=== PATIENT | male | born 1940 | race Caucasian/White ===

== ENCOUNTER 2016-12-28 10:26 | Observation (INO) | payer OTHER ==
[~2016-12-28] VITALS: Ht 175.3 cm; Wt 80.0 kg
[~2016-12-28 10:26] MED LIST: CALC-187 PO; CLOP75 PO; CYCL1PAK PO; EPLE25TA PO; LASI20TA PO; LISI-357 PO; LORTA10 PO; MAGN250T13 PO; MELA10TA PO; MELO15; METO25 PO; NEUR100C PO; NITR0.4S SL; NOVONP2 SQ; NOVORP2 SQ; PRAV80TA PO; PROS5TAB2 PO; PROZ40CA PO; TAB-TAB PO; VITA-13 PO
[2016-12-28 10:28] VITALS: BP 151/65; PULSE 70; RESP 15; TEMP 98.2; O2SAT 96
[2016-12-28 10:55] VITALS: BP 161/77; PULSE 69; RESP 18; O2SAT 99
[2016-12-28] MEDS ORDERED: ACETAMINOPHEN 325 MG TAB PO ONE (11:00)
[2016-12-28 11:02] LABS: AUTOMATED NEUTROPHIL # 6.2 TH/MM3 (1.8-7.7); BASOPHIL # 0.1 TH/MM3 (0-0.2); BASOPHIL % 1.2 % (0.0-2.0); EOSINOPHIL # 0.3 TH/MM3 (0-0.4); EOSINOPHIL % 2.8 % (0.0-4.0); HEMATOCRIT 40.1 % (39.0-51.0); HEMO FLAGS DIFF FINAL; LYMPH % 17.2 % (9.0-44.0); LYMPHOCYTE # 1.5 TH/MM3 (1.0-4.8); MEAN CELL VOLUME 87.1 FL (80.0-100.0); MEAN CORPUSCULAR HEMOGLOBIN 29.7 PG (27.0-34.0); MEAN CORPUSCULAR HGB CONC 34.1 % (32.0-36.0); NEUT % 68.8 % (16.0-70.0); PLATELET COUNT 287 TH/MM3 (150-450); RED CELL DISTRIBUTION WIDTH 13.8 % (11.6-17.2)
--- NOTE | 2016-12-28 11:05 | PD ---
HPI . Chest pain Chief Complaint: Chest Pain Time Seen by Provider: 10:51 Travel History International Travel<30 days: Yes Contact w/Intl Traveler<30days: Yes Name of Country Traveled to: [facility] Traveled to known affect area: Yes History of Present Illness HPI Patient presents for the evaluation of chest pain. Patient reports an episode of chest pain 8 days ago associated with shortness of breath and dizziness. It was relieved by one sublingual nitroglycerin. He went to see his software development engineer about it yesterday. His software development engineer suggested that he present to the emergency department for a more thorough evaluation. The patient comes in to us this morning for that evaluation. He is pain-free at this time and has been pain-free since 8 days ago. PFSH Past Medical History Anemia: Yes Arthritis: Yes Asthma: No Autoimmune Disease: Yes Blood Disorders: No Anxiety: Yes Depression: Yes Heart Rhythm Problems: No Cancer: No Cardiovascular Problems: Yes High Cholesterol: Yes Chemotherapy: No Chest Pain: No Congestive Heart Failure: Yes COPD: No Cerebrovascular Accident: No Diabetes: Yes (since 20 yrs. ago) Diminished Hearing: Yes (HEARING AIDS BUT DOES NOT WEAR. [place]) Endocrine: Yes Gastrointestinal Disorders: Yes Glaucoma: No Genitourinary: No Headaches: No Hepatitis: No Hiatal Hernia: No Hypertension: Yes Immune Disorder: No Implanted Vascular Access Dvce: Yes Musculoskeletal: Yes Neurologic: Yes (neuropathy) Psychiatric: Yes Reproductive: No Respiratory: Yes Migraines: No Myocardial Infarction: Yes Renal Failure: No Seizures: No Sleep Apnea: No Thyroid Disease: No Past Surgical History Abdominal Surgery: Yes AICD: Yes Arteriovenous Shunt: No Cardiac Surgery: Yes (cabg x5 1996 deffibrilator 2007) Coronary Artery Bypass Graft: Yes (5 bypass 1996) Ear Surgery: No Endocrine Surgery: No Eye Surgery: Yes (ioli 2011) Genitourinary Surgery: Yes Gynecologic Surgery: No Insulin Pump: No Joint Replacement: No Neurologic Surgery: Yes (RIGHT ENDARTERECTOMY) Oral Surgery: Yes Pacemaker: Yes Thoracic Surgery: Yes Other Surgery: Yes (BOTH LEGS VEINS STRIPPED) Social History Alcohol Use: No Tobacco Use: No (QUIT 1977) Substance Use: No Allergies-Medications (Allergen,Severity, Reaction): Coded Allergies: Codeine (Verified Allergy, Severe, 12/28/16) *MDRO Multi-Drug Resistant Organism (Verified Allergy, Unknown, 12/28/16) MRSA Sputum and Bronch washings, most recent 12/2009 Tylenol/Codeine (Verified Adverse Reaction, Intermediate, SWEATS, 12/28/16) Reported Meds & Prescriptions Reported Meds & Active Scripts Active Reported Eplerenone 25 Mg Tab PO Mobic 15 Mg Tab (Meloxicam) 15 Mg Tab 15 Mg .XX Pravachol 80 Mg Tab 1 Tab PO HS Melatonin Cr (Melatonin) 10 Mg Tab 10 Mg PO HS Metoprolol Tartrate 25 Mg Tab 1 Tab PO HS Novolin N (Insulin Human NPH) 100 Units/Ml Inj 12 Units SQ BID Lisinopril 5 Mg Tab 5 Mg PO BID Novolin R (Insulin Human Regular) 100 Units/Ml Inj 8 Units SQ BID Eplerenone 25 Mg Tab 25 Mg PO DAILY Lortab 10/325 Tab (Hydrocodone-Acetaminophen) 10 Mg/325 Mg Tab 1 Tab PO BIDPRN Cyclobenzaprine Hcl (Cyclobenzaprine HCl) 10 Mg Tab 0.5 Tab PO BID PRN Vitamin D3 1000 Unit Tab (Cholecalciferol) 1,000 Unit Tab 1,000 Unit PO DAILY Calcium 500/Vitamin D3 (Calcium Carbonate/Cholecalciferol) /Vit D3 Tab 1 PO DAILY Plavix (Clopidogrel Bisulfate) 75 Mg Tab 75 Mg PO DAILY Magnesium 250 Mg Tab 420 Mg PO DAILY@12 Lasix (Furosemide) 20 Mg Tab 20 Mg PO DAILY Nitrostat (Nitroglycerin) 0.4 Mg Subl 0.4 Mg SL PRN 1 TAB SL EVERY 5 MINS X 3 PRN CHEST PAIN Multivitamin (Multivitamins) 1 Tab Tab 1 Tab PO DAILY Prozac (Fluoxetine HCl) 40 Mg Cap 20 Mg PO HS Proscar (Finasteride) 5 Mg Tab 5 Mg PO DAILY Neurontin (Gabapentin) 100 Mg Cap 400 Mg PO BID Review of Systems Except as stated in HPI: all other systems reviewed are Neg HENT: Positive: Lightheadedness (8 days ago) Cardiovascular: Positive: Chest Pain or Discomfort Respiratory: Positive: Shortness of Breath (8 days ago) Physical Exam Narrative GENERAL: This patient ambulates to the room in no distress. SKIN: Warm and dry. HEAD: Atraumatic. Normocephalic. EYES: Pupils equal and round. ENT: No nasal bleeding or discharge. Mucous membranes pink and moist. NECK: Trachea midline. Neck is supple. CARDIOVASCULAR: Regular rate and rhythm. Heart sounds are normal. RESPIRATORY: No accessory muscle use. Lungs are clear with full air movement throughout. Chest wall is nontender to palpation. GASTROINTESTINAL: Abdomen soft, non-tender, nondistended. MUSCULOSKELETAL: No obvious deformities. No edema. NEUROLOGICAL: Awake and alert. No obvious cranial nerve deficits. Motor grossly within normal limits. Normal speech. PSYCHIATRIC: Appropriate mood and affect; insight and judgment normal. Data Data Last Documented VS Vital Signs Date Time Temp Pulse Resp B/P Pulse Ox O2 Delivery O2 Flow Rate FiO2 12/28/16 10:55 18 Room Air 12/28/16 10:55 99 2 12/28/16 10:55 69 161/77 12/28/16 10:28 98.2 Orders Electrocardiogram (12/28/16 10:32) Complete Blood Count With Diff (12/28/16 10:32) Basic Metabolic Panel (Bmp) (12/28/16 10:32) Ckmb (Isoenzyme) Profile (12/28/16 10:32) Troponin I (12/28/16 10:32) Chest, Single Ap (12/28/16 10:32) Iv Access Insert/Monitor (12/28/16 10:32) Ecg Monitoring (12/28/16 10:32) Oxygen Administration (12/28/16 10:32) Oximetry (12/28/16 10:32) Acetaminophen (Tylenol) (12/28/16 11:00) Labs Laboratory Tests Test 12/28/16 10:43 White Blood Count 9.0 TH/MM3 Red Blood Count 4.60 MIL/MM3 Hemoglobin 13.6 GM/DL Hematocrit 40.1 % Mean Corpuscular Volume 87.1 FL Mean Corpuscular Hemoglobin 29.7 PG Mean Corpuscular Hemoglobin 34.1 % Concent Red Cell Distribution Width 13.8 % Platelet Count 287 TH/MM3 Mean Platelet Volume 8.0 FL Neutrophils (%) (Auto) 68.8 % Lymphocytes (%) (Auto) 17.2 % Monocytes (%) (Auto) 10.0 % Eosinophils (%) (Auto) 2.8 % Basophils (%) (Auto) 1.2 % Neutrophils # (Auto) 6.2 TH/MM3 Lymphocytes # (Auto) 1.5 TH/MM3 Monocytes # (Auto) 0.9 TH/MM3 Eosinophils # (Auto) 0.3 TH/MM3 Basophils # (Auto) 0.1 TH/MM3 CBC Comment DIFF FINAL Differential Comment Sodium Level 139 MEQ/L Potassium Level 4.0 MEQ/L Chloride Level 107 MEQ/L Carbon Dioxide Level 27.8 MEQ/L Anion Gap 4 MEQ/L Blood Urea Nitrogen 28 MG/DL Creatinine 1.44 MG/DL Estimat Glomerular Filtration 48 ML/MIN Rate Random Glucose 124 MG/DL Calcium Level 8.6 MG/DL Total Creatine Kinase 97 U/L Troponin I 0.02 NG/ML MDM Medical Decision Making Medical Screen Exam Complete: Yes Emergency Medical Condition: Yes Medical Record Reviewed: Yes Interpretation(s) EKG shows a paced rhythm. It does not appear to be changed from previous. Differential Diagnosis Differential diagnosis of chest pain includes but is not limited to musculoskeletal pain, pulmonary embolism, acute coronary syndrome, pneumonia, pleurisy Narrative Course Patient presents at the request of his software development engineer for evaluation of chest pain. I suspect that the software development engineer wants the patient to go to the chest pain center for a stress test. believes that that's exactly what the software development engineer wanted. CBC is normal. Electrolytes are normal. BUN/creat is 28/1.44 with a GFR of 48. Cardiac enzymes were negative. I have placed the order for the patient to be admitted to the chest pain center for further evaluation. Diagnosis Primary Impression: Chest pain Qualified Code: R07.9 - Chest pain, unspecified type Admitting Information Admitting Physician Requests: Admit Condition: Stable Natasha Pal MD Dec 28, 2016 11:05
[2016-12-28 11:18] LABS: BICARBONATE 27.8 MEQ/L (21.0-32.0)
--- NOTE | 2016-12-28 11:26 | RADRPT ---
EXAM DATE/TIME: 12/28/2016 10:37 [facility] COMPARISON: CHEST SINGLE AP, June 30, 2014, 18:55. INDICATIONS : Chest pain. Dizziness, and shortness of breath. MEDICAL HISTORY : None. SURGICAL HISTORY : CABG. Pacemaker. Defibrillator ENCOUNTER: Initial ACUITY: 1 week PAIN SCORE: 10/10 LOCATION: Bilateral chest FINDINGS: The heart is enlarged. There are chronic interstitial changes within the pulmonary parenchyma. There is a transvenous pacer. The bony structures are grossly intact. The patient is post median sternotomy . The exam is stable compared to previous. CONCLUSION: 1. Post surgical changes. Stable exam compared to previous. Young Scott MD on December 28, 2016 at 11:25 Board Certified Radiologist. This report was verified electronically.
[2016-12-28] MEDS ORDERED: METF-381 PO (12:20)
[2016-12-28 12:25] VITALS: BP 132/77; PULSE 69; RESP 16; O2SAT 99
[2016-12-28] MEDS ORDERED: SODIUM CHLORIDE 0.9% FLUSH 5 ML FLUSH IVF PRN (12:30)
[2016-12-28] MEDS ORDERED: NITR1SUB3 SL (12:32)
[2016-12-28] MEDS ORDERED: EPLE25TA PO (12:32)
[2016-12-28] MEDS ORDERED: MULT-135 PO (12:32)
[2016-12-28] MEDS ORDERED: PROZ20CA11 PO (12:32)
[2016-12-28] MEDS ORDERED: CYCL5TAB PO (12:32)
[2016-12-28] MEDS ORDERED: PLAV75TA29 PO (12:32)
[2016-12-28] MEDS ORDERED: ATOR40TA16 PO (12:32)
[2016-12-28] MEDS ORDERED: FURO1TAB62 PO (12:32)
[2016-12-28] MEDS ORDERED: PROS5TAB PO (12:32)
[2016-12-28] MEDS ORDERED: TRAM50TA PO (12:32)
[2016-12-28] MEDS ORDERED: PROZ40CA PO (12:32)
[2016-12-28] MEDS ORDERED: MELA10TA PO (12:32)
[2016-12-28] MEDS ORDERED: LANTUS2P SQ (12:32)
[2016-12-28] MEDS ORDERED: NOVORP2 SQ (12:32)
[2016-12-28] MEDS ORDERED: AMLO5TAB2 PO (12:32)
[2016-12-28] MEDS ORDERED: CALTTAB PO (12:32)
[2016-12-28] MEDS ORDERED: CHOL20003 PO (12:32)
[2016-12-28] MEDS ORDERED: MAGN400T2 PO (12:32)
[2016-12-28] MEDS ORDERED: GABA600T PO (12:32)
[2016-12-28] MEDS ORDERED: LISI10TA3 PO (12:35)
[2016-12-28] MEDS ORDERED: ONDANSETRON HCL 4 MG/2 ML VIAL IV PRN (13:00)
[2016-12-28] MEDS ORDERED: DEXTROSE 50% IN WATER 50 ML VIAL(D50) IV PRN (13:45)
[2016-12-28] MEDS ORDERED: GLUCAGON 1 MG/ML VIAL IM/SQ PRN (13:45)
[2016-12-28] MEDS ORDERED: PILL SPLITTER OTHER PRN (13:45)
[2016-12-28] MEDS ORDERED: ALPRAZolam 0.25 MG TAB PO PRN (14:00)
[2016-12-28] MEDS ORDERED: SODIUM CHLOR 0.9% 1000 ML INJ 1,000 ML IV SCH (14:00)
[2016-12-28] MEDS ORDERED: traMADol HCL 50 MG TAB PO PRN (14:00)
[2016-12-28] MEDS ORDERED: REGADENOSON INJ 0.4 MG/5 ML SYR ONE (14:48)
--- NOTE | 2016-12-28 14:53 | MH ---
cc: KETAN MAZA MD DATE OF ADMISSION: 12/28/2016 DATE OF : 1940 CHIEF COMPLAINT Chest pain. HISTORY OF PRESENT ILLNESS This is a 76-year-old male with a history of CAD status post CABG in 2007 that presented complaining of chest comfort. The patient states that eight days ago while at home he was really doing nothing in particular and developed a left-sided discomfort described as a pressure radiating down his left arm, 10/10. He states that after about five minutes of having this discomfort he took a nitroglycerin and started to feel better quickly and resolved within 15 minutes. He was short of breath with it. No nausea or diaphoresis. He states that it feels somewhat to when he needed bypassing in the past, but this is no where near as intense even though he rates it as a 10/10. He states that he attempted to see his rheumatology nurse yesterday in [place], Dr. Granado, but he was out of town and followed up with his metal forger's assistant. His metal forger's assistant said she did not like the EKG and told him to go to the ER immediately as they would not be able to do a stress test for sometime through their office and he needed to have a stress test. The patient went home and really was thinking about it and decided to come into the ER today. He has not had any discomfort since that first episode eight days ago. There has been no recurrence of discomfort in his chest. He believes his last stress test was three or four years ago at his rheumatology nurse's office and that it was okay. PAST MEDICAL HISTORY 1. CAD with CABG in 2007; pacer and defibrillator. 2. Diabetes. 3. Hypertension. 4. Hyperlipidemia. 5. Past history of tobacco abuse, but quit smoking 30 years ago. 6. Carotid artery stenosis. FAMILY HISTORY Positive for CAD. SOCIAL HISTORY He quit smoking 30 years ago. He denies alcohol or illicit drugs. He is . PAST SURGICAL HISTORY 1. CABG in 2007. He had a heart catheterization soon afterwards and was found that all gambell vessels were totally occluded, but there was relatively normal revascularizations with patency of all the grafts. He states he has not had heart catheterization since then. 2. Bilateral rotator cuff repair. 3. Right endarterectomy. ALLERGIES 1. CODEINE. 2. HE HAS TYLENOL WITH CODEINE LISTED ALSO BUT STATES HE HAS NO PROBLEM WITH TYLENOL IT IS JUST THE CODEINE. 3. PAST HISTORY OF MRSA. MEDICATIONS Current medications: 1. Proscar 5 mg daily. 2. Lisinopril 10 mg daily. 3. Magnesium oxide 400 mg daily. 4. Gabapentin 600 mg twice daily. 5. Prozac 20 mg q.12h., and 40 mg daily. 6. Metformin 5 mg at nighttime. 7. Flexeril. 8. Amlodipine. 9. Atorvastatin. 10.Lantus 42 units subcutaneously in the evening. 11.Novolin 50 units subcutaneously twice daily. 12.Lasix 30 mg daily. 13.Eplerenone 25 mg daily. 14.Multivitamin. 15.Sublingual nitroglycerin p.r.n. 16.Tramadol for pain. 17.Melatonin. 18.Plavix. 19.Caltrate. 20.Vitamin-D. REVIEW OF SYSTEMS GENERAL: Denies fevers or chills. Denies recent illnesses. HEENT: Denies headache, earache, sore throat, difficulty swallowing. CARDIOVASCULAR: Describes the discomfort as mentioned above. Denies diaphoresis. Denies sensation of heart beating rapidly or irregularly. Denies syncope. RESPIRATORY: He was short of breath. No inspirational chest discomfort. Denies coughing, wheezing or hemoptysis. GASTROINTESTINAL: Denies nausea, vomiting, diarrhea, abdominal pain or blood in the stool. MUSCULOSKELETAL: Denies joint pain or edema. Denies calf pain or edema. NEUROVASCULAR: Denies headache or dizziness. ENDOCRINE: Denies polyuria or polydipsia. HEMATOLOGIC: Denies easy bruising. SKIN: Denies rash or itching. PHYSICAL EXAMINATION VITAL SIGNS: The vital signs in the emergency department initially included a blood pressure of 151/65, heart rate 70, respirations 15, pulse oximetry 96% on room air, and he was afebrile. The most recent vital signs include a blood pressure of 132/77, heart rate 69, respirations 16, pulse oximetry 98% on two liters nasal cannula. GENERAL: The patient is seen in the examination room in no apparent distress. He is very pleasant. He speaks in clear and complete sentences. HEENT: Atraumatic, normocephalic. NECK: Supple without lymphadenopathy. Trachea is midline. No JVD. There is a right carotid bruit. CARDIOVASCULAR: Regular rate and rhythm without gallop or rub. Grade 2 systolic murmur at the left sternal border. PULMONARY: Lungs are clear to auscultation bilaterally. No wheezing, rales or rhonchi. No reproducible chest wall discomfort. No use of accessory muscles. ABDOMEN: Nontender, nondistended. Bowel sounds are normal. No guarding or rebound. No obvious pulsatile mass or bruit. No CVA tenderness. Strong femoral pulses bilaterally. EXTREMITIES: The patient is moving upper and lower extremities freely. No joint tenderness or edema. No calf tenderness or edema. No Homans sign. Strong pulses in the upper and lower extremities. NEUROLOGIC: The patient is alert and oriented. Cranial nerves II through XII are grossly intact. No focal deficits. Speech is clear. SKIN: No rashes. Turgor is normal. LABORATORY DATA CBC is unremarkable. Basic metabolic profile has creatinine elevated at 1.44, BUN elevated at 28, GFR decreased at 48, glucose mildly elevated at 124. Otherwise unremarkable BMP. The first set of cardiac enzymes are normal. IMAGING DATA A single-view chest x-ray read by the radiologist as postsurgical changes, stable exam compared to previous. EKG DATA Initial EKG is ventricular paced. ASSESSMENT AND PLAN 1. Chest pain: The patient has a history CAD. He went to his rheumatology nurse's office yesterday and was advised to come to the ER yesterday. He has not had a recurrent episode chest pain since eight days ago. Spoke with Dr. Maza. He will be seen by Dr. Maza in the chest pain center. At this time the patient will undergo a Lexiscan myocardial perfusion stress test, and if non-ischemic he will be discharged home with instructions to follow-up with his rheumatology nurse as well as his primary care physician. 2. Renal insufficiency: The patient will be given IV hydration. He will need to have this rechecked with his PCP. 3. Diabetes: Will hold his current medication and have sliding scale insulin coverage. He should follow a diabetic diet. 4. Hypertension: Continue current medication. 5. Hyperlipidemia: Continue current medication. 6. Has pacer and defibrillator: The patient will continue to follow-up with his rheumatology nurse. 7. The patient is stable at this time. He is agreeable to this plan. Dictated by: Mehul Trammell PA-C MD GARRET Jolley/JAY /1:31 PM /2:43 PM
--- NOTE | 2016-12-28 15:25 | TR ---
Date Performed: 12/28/2016 Time Performed: 14:50:39 DOCTOR: Rolando Toledo DRUG LIST: CLINICAL HISTORY: REASON FOR TEST: CHEST PAIN REASON FOR ENDING: OBSERVATION: CONCLUSION: Lexiscan stress test was performed under standard four minute protocol. Radionuclid e was injected one minute prior to ending the test. No electrocardiographic abormalities were present to suggest ischemia. Nuclear imaging and interpretation are pending. COMMENTS:
[2016-12-28] MEDS ORDERED: CLOPIDOGREL 75 MG TAB PO SCH (16:00)
[2016-12-28] MEDS ORDERED: INSULIN ASPART SUPPLEMENTAL SCALE SQ SCH (16:00)
[2016-12-28] MEDS ORDERED: CYCLOBENZAPRINE HCL 10 MG TAB PO SCH (16:00)
[2016-12-28] MEDS ORDERED: FLUoxetine HCL 20 MG CAP PO SCH ×2 (16:00→21:00)
--- NOTE | 2016-12-28 16:00 | RADRPT ---
EXAM DATE/TIME: 12/28/2016 14:14 [facility] COMPARISON: CHEST SINGLE AP, December 28, 2016, 10:37. INDICATIONS : Mid chest pain with shortness of breath for one week. Angina. Myocardial infarction. DOSE: 26.7 mCi Tc99m Myoview at stress. 8.5 mCi Tc99m Myoview at rest. 0.4 mg Lexiscan STRESS SYMPTOMS: None noted. EJECTION FRACTION: 40% MEDICAL HISTORY : Diabetes mellitus type 2. Hypertension. Cardiovascular disease SURGICAL HISTORY : CABG Pacemaker. ENCOUNTER: Initial ACUITY: 1 week PAIN SCALE: 5/10 LOCATION: Midsternal chest TECHNIQUE: The patient underwent pharmacologic stress with infusion of prescribed dose. Continuous ECG tracing was monitored during stress. Gated SPECT imaging was performed after stress and conventional SPECT i maging was performed at rest. The examination was performed on a SPECT/CT scanner, both attenuation and non-corrected datasets were reviewed. FINDINGS: DISTRIBUTION: The maximum perfused segment at stress is in the septal wall. PERFUSION STUDY: The pattern of perfusion at stress reveals a perfusion defect in the lateral wall without redistribut ion at rest. GATED STUDY: There is intact wall motion and thickening without hypokinetic or dyskinetic segments. CONCLUSION: Fixed perfusion defect lateral wall consistent with infarct. There is no redistribution. Diminished e jection fraction at 40% RISK CATEGORY: Intermediate (1-3% Annual Mortality Rate) Morgan Turner MD on December 28, 2016 at 15:57 Board Certified Radiologist. This report was verified electronically.
--- NOTE | 2016-12-28 16:09 | EKG ---
Date Performed: 12/28/2016 Time Performed: 10:38:29 PTAGE: 76 years EKG: ELECTRONIC ATRIAL PACEMAKER ELECTRONIC VENTRICULAR PACEMAKER ABNORMAL RHYTHM ECG PREVIOUS TRACING : 06/30/2014 18.14 Compared to the previous tracing, Dual chamber pacemaker opal conley is new DOCTOR: Jesus Granado Interpretating Date/Time 12/28/2016 16:08:41
[2016-12-28] MEDS ORDERED: IOHEXOL 350 MG/ML 10 ML VIAL (for RAD DIAG) IV ONE (17:01)
--- NOTE | 2016-12-28 17:15 | RADRPT ---
EXAM DATE/TIME: 12/28/2016 16:43 [facility] COMPARISON: No previous studies available for comparison. INDICATIONS : Chest pain and shortness of breath. IV CONTRAST: 70 cc Omnipaque 350 (iohexol) IV RADIATION DOSE: 27.59 CTDIvol (mGy) MEDICAL HISTORY : Hypertension. Diabetes mellitus type 1. SURGICAL HISTORY : CABG Pacemaker.Right endarterectomy. ENCOUNTER: Initial ACUITY: 1 day PAIN SCALE: 5/10 LOCATION: chest TECHNIQUE: Volumetric scanning of the chest was performed using a pulmonary embolism protocol MIP images were re constructed. Using automated exposure control and adjustment of the mA and/or kV according to patien t size, radiation dose was kept as low as reasonably achievable to obtain optimal diagnostic quality images. FINDINGS: PULMONARY ARTERIES: No filling defects are seen in the pulmonary arteries through the segmental level. LUNGS: There is no consolidation or pneumothorax . No concerning pulmonary nodule is visualized. PLEURAE: There is no pleural thickening or pleural effusion. MEDIASTINUM: There is good visualization of the great vessels of the middle mediastinum. No evidence of mediastin al or hilar adenopathy/mass. Atherosclerotic cardiovascular disease with coronary calcifications. Pamela or median sternotomy. Pacemaker overlie left hemithorax. MUSCULOSKELETAL: Within normal limits for patient age. Prior median sternotomy coronary bypass MISCELLANEOUS: The visualized upper abdominal organs demonstrate no acute abnormality. CONCLUSION: Negative for pulmonary embolization with no acute cardiopulmonary process.. Morgan Turner MD on December 28, 2016 at 17:10 Board Certified Radiologist. This report was verified electronically.
--- NOTE | 2016-12-28 17:43 | HHI.DCPOC ---
Discharge Care Plan Diagnosis: (1) Chest pain (2) CAD (coronary artery disease) (3) Hx of CABG (4) Hyperlipidemia (5) Hypertension (6) DM (diabetes mellitus) (7) Cardiac defibrillator in place (8) Pacemaker (9) Renal insufficiency Goals to Promote Your Health HOLD METFORMIN FOR TWO DAYS. * To prevent worsening of your condition and complications * To maintain your health at the optimal level Directions to Meet Your Goals Take your medications as prescribed Follow your dietary instruction Follow activity as directed Keep your appointments as scheduled Take your immunizations and boosters as scheduled If your symptoms worsen call your PCP, if no PCP go to Urgent Care Center or Emergency Room Smoking is Dangerous to Your Health. Avoid second hand smoke Call the 24-hour hour crisis hotline for domestic abuse at Mehul Trammell Dec 28, 2016 17:43
[2016-12-28] MEDS ORDERED: SODIUM CHLOR 0.9% 250 ML INJ 250 ML IV ONE (18:00)
[2016-12-28] MEDS ORDERED: ATORVASTATIN 40 MG TAB PO SCH (21:00)
[2016-12-28] MEDS ORDERED: SODIUM CHLORIDE 0.9% FLUSH 5 ML FLUSH IVF SCH (21:00)
[2016-12-29] MEDS ORDERED: FUROSEMIDE 20 MG TAB PO SCH (09:00)
[2016-12-29] MEDS ORDERED: FINASTERIDE 5 MG TAB PO SCH (09:00)
[2016-12-29] MEDS ORDERED: ASPIRIN 325 MG TAB PO SCH (09:00)
[2016-12-29] MEDS ORDERED: EPLERENONE 25 MG TAB PO SCH (09:00)
[2016-12-29] MEDS ORDERED: MULTIVITAMIN TAB PO SCH (09:00)
[2016-12-29] MEDS ORDERED: LISINOPRIL 10 MG TAB PO SCH (09:00)
[2016-12-29] MEDS ORDERED: MAGNESIUM OXIDE 400 MG TAB PO SCH (11:00)
[2016-12-29] MEDS ORDERED: amLODIPine BESYLATE 5 MG TAB PO SCH (11:00)
== END 2016-12-28 20:41 | disposition home or self-care (01) ==
LOC: NEPA 10:26 → NEDA 11:27 → NEPGCP 15:47
PROVIDERS: ADMIT Internal Medicine Cardiovascular Disease; ATTEND Internal Medicine Cardiovascular Disease
DX: R07.89 Other chest pain (principal); I25.10 Atherosclerotic heart disease of native coronary artery without angina pectoris; I10 Essential (primary) hypertension; I50.9 Heart failure, unspecified; N28.9 Disorder of kidney and ureter, unspecified; I25.2 Old myocardial infarction; E78.5 Hyperlipidemia, unspecified; E11.9 Type 2 diabetes mellitus without complications; E78.00 Pure hypercholesterolemia, unspecified; H91.90 Unspecified hearing loss, unspecified ear; Z87.891 Personal history of nicotine dependence; Z95.1 Presence of aortocoronary bypass graft; Z95.0 Presence of cardiac pacemaker; Z79.84 Long term (current) use of oral hypoglycemic drugs
CPT/HCPCS: 71010; 71275; 78452; 80048; 82550; 84484; 85025; 85379; 93005; 93017; 99285; A9502; G0378; J2785; J7050; Q9967